=== PATIENT | female | born 1990 | race Caucasian/White ===

== ENCOUNTER 2017-08-04 16:44 | Emergency (ER) | payer OTHER ==
[2017-08-04 16:55] VITALS: RESP 16
[2017-08-04] MEDS ORDERED: SODIUM CHLORIDE 0.9% 1,000 ML IV STA ×2 (17:23)
[2017-08-04] MEDS ORDERED: ONDANSETRON 4 MG/2 ML VIAL IVP STA (17:23)
--- NOTE | 2017-08-04 17:42 | ED ---
Nausea/Vomiting/Diarrhea HPI - General Chief complaint: Nausea/Vomiting/Diarrhea Stated complaint: Hip Pain, very tired Time Seen by Provider: 08/04/17 17:02 Source: patient, RN notes reviewed, old records reviewed Mode of arrival: ambulatory Limitations: no limitations - History of Present Illness Initial comments: This is a 27-year-old female presents to the emergency Department chief complaint of increased fatigue for the past 3 days that she was at work today and had one episode of vomiting a total that she needed to come to the emergency department. She denies any specific pain in her abdomen. She also reports that last night when she was sleeping she had some burning sensation over her left hip. She denies any pain with walking. Patient states she's had no dysuria or changes in bowel movements. She states that the pain only seems to be in proper whenever she lays directly on her left hip. Patient denies any known fever or chills, no history of sick contacts. Patient reports that she's been under a lot of stress lately due to relationships, she states that that might be why she said fatigued. She alsor relates intermittent cough adn sinus congestion. - Related Data Home Medications Medication Instructions Recorded Confirmed Amitriptyline HCl 10 mg PO HS 08/04/17 08/04/17 HYDROcodone/APAP 5-325MG [[place] 1 tab PO BID 08/04/17 08/04/17 5-325] Naproxen Sodium [Aleve] 220 mg PO BID PRN 08/04/17 08/04/17 Previous Rx's Medication Instructions Recorded Azithromycin [Zithromax] 250 mg PO DAILY #6 tab 08/04/17 methylPREDNISolone Dose Pack 4 mg PO DIRECTED #21 package 08/04/17 [Medrol Dose Pack] Allergies Allergy/AdvReac Type Severity Reaction Status Date / Time cyclobenzaprine HCl AdvReac Unknown Verified 08/04/17 17:06 [From Flexeril] propranolol AdvReac Decreased Verified 08/04/17 17:06 BP sumatriptan [From Imitrex] AdvReac Unknown Verified 08/04/17 17:06 sumatriptan succinate AdvReac Unknown Verified 08/04/17 17:06 [From Imitrex] tramadol HCl [From Ultram] AdvReac Unknown Verified 08/04/17 17:06 Review of Systems ROS Statement: Those systems with pertinent positive or pertinent negative responses have been documented in the HPI. ROS Other: All systems not noted in ROS Statement are negative. Past Medical History Past Medical History: Seizure Disorder History of Any Multi-Drug Resistant Organisms: MRSA Date of last positivie culture/infection: 2011 MDRO Source:: genital area Past Surgical History: Section, Tubal Ligation, Uterine Ablation Past Psychological History: No Psychological Hx Reported Smoking Status: Never smoker Past Alcohol Use History: None Reported Past Drug Use History: Marijuana General Exam - General Exam Comments Initial Comments: This is a 27-year-old female. No acute distress. Limitations: no limitations General appearance: alert, in no apparent distress Head exam: Present: atraumatic, normocephalic, normal inspection Eye exam: Present: normal appearance, PERRL, EOMI. Absent: scleral icterus, conjunctival injection, periorbital swelling ENT exam: Present: normal exam, mucous membranes moist Neck exam: Present: normal inspection. Absent: tenderness, meningismus, lymphadenopathy Respiratory exam: Present: normal lung sounds bilaterally. Absent: respiratory distress, wheezes, rales, rhonchi, stridor Cardiovascular Exam: Present: regular rate, normal rhythm, normal heart sounds. Absent: systolic murmur, diastolic murmur, rubs, gallop, clicks GI/Abdominal exam: Present: soft, normal bowel sounds. Absent: distended, tenderness, guarding, rebound, rigid Extremities exam: Present: normal inspection, full ROM, normal capillary refill. Absent: tenderness, pedal edema, joint swelling, calf tenderness Back exam: Present: normal inspection Neurological exam: Present: alert, oriented X3, CN II-XII intact Psychiatric exam: Present: normal affect, normal mood Course Vital Signs 08/04/17 08/04/17 16:51 20:26 Temperature 98.6 F 98 F Pulse Rate 65 76 Respiratory 16 16 Rate Blood Pressure 121/73 131/65 O2 Sat by Pulse 98 100 Oximetry Medical Decision Making - Medical Decision Making This is a 27-year-old female presents to the emergency Department chief complaint of increased fatigue for the past 3 days that she was at work today and had one episode of vomiting a total that she needed to come to the emergency department. She denies any specific pain in her abdomen. She also reports that last night when she was sleeping she had some burning sensation over her left hip. She denies any pain with walking. PAtietn has full range of motion of hip, lungs are clear, throat appears normal. Patient also reports sinus congestion. Patient lab work reviewed, mild leukocytosis. Patient hip xray , chest xray are negative. Patient urine shows no infection. I beliece hip pain is due to sciatic nerve inflammation. PAtient will be started on azithromycin and medrol dose paick for upper respiratory infection. Written off for work, return parameters discussed. - Lab Data Result diagrams: 08/04/17 18:03 08/04/17 18:03 Lab Results 08/04/17 08/04/17 08/04/17 Range/Units 18:03 18:03 18:03 WBC 12.5 H (3.8-10.6) k/uL RBC 4.77 (3.80-5.40) m/uL Hgb 14.1 (11.4-16.0) gm/dL Hct 42.8 (34.0-46.0) % MCV 89.7 (80.0-100.0) fL MCH 29.6 (25.0-35.0) pg MCHC 33.0 (31.0-37.0) g/dL RDW 14.0 (11.5-15.5) % Plt Count 287 (150-450) k/uL Neutrophils % 84 % Lymphocytes % 9 % Monocytes % 5 % Eosinophils % 2 % Basophils % 0 % Neutrophils # 10.4 H (1.3-7.7) k/uL Lymphocytes # 1.1 (1.0-4.8) k/uL Monocytes # 0.6 (0-1.0) k/uL Eosinophils # 0.2 (0-0.7) k/uL Basophils # 0.0 (0-0.2) k/uL Sodium 141 (137-145) mmol/L Potassium 3.8 (3.5-5.1) mmol/L Chloride 106 (98-107) mmol/L Carbon Dioxide 26 (22-30) mmol/L Anion Gap 9 mmol/L BUN 12 (7-17) mg/dL Creatinine 0.71 (0.52-1.04) mg/dL Est GFR (MDRD) Af Amer >60 (>60 ml/min/1.73 sqM) Est GFR (MDRD) Non-Af >60 (>60 ml/min/1.73 sqM) Glucose 82 (74-99) mg/dL Calcium 9.5 (8.4-10.2) mg/dL Total Bilirubin 0.4 (0.2-1.3) mg/dL AST 20 (14-36) U/L ALT 26 (9-52) U/L Alkaline Phosphatase 60 (38-126) U/L Total Protein 7.2 (6.3-8.2) g/dL Albumin 4.5 (3.5-5.0) g/dL Amylase 40 (30-110) U/L Lipase 34 (23-300) U/L Urine Color Urine Appearance (Clear) Urine pH (5.0-8.0) Ur Specific [place] (1.001-1.035) Urine Protein (Negative) Urine Glucose (UA) (Negative) Urine Ketones (Negative) Urine Blood (Negative) Urine Nitrite (Negative) Urine Bilirubin (Negative) Urine Urobilinogen (<2.0) mg/dL Ur Leukocyte Esterase (Negative) Urine Opiates Screen (NotDetected) Ur Oxycodone Screen (NotDetected) Urine Methadone Screen (NotDetected) Ur Propoxyphene Screen (NotDetected) Ur Barbiturates Screen (NotDetected) U Tricyclic Antidepress (NotDetected) Ur Phencyclidine Scrn (NotDetected) Ur Amphetamines Screen (NotDetected) U Methamphetamines Scrn (NotDetected) U Benzodiazepines Scrn (NotDetected) Urine Cocaine Screen (NotDetected) U Marijuana (THC) Screen (NotDetected) Heterophile Antibody Negative (Negative) 08/04/17 Range/Units 18:43 WBC (3.8-10.6) k/uL RBC (3.80-5.40) m/uL Hgb (11.4-16.0) gm/dL Hct (34.0-46.0) % MCV (80.0-100.0) fL MCH (25.0-35.0) pg MCHC (31.0-37.0) g/dL RDW (11.5-15.5) % Plt Count (150-450) k/uL Neutrophils % % Lymphocytes % % Monocytes % % Eosinophils % % Basophils % % Neutrophils # (1.3-7.7) k/uL Lymphocytes # (1.0-4.8) k/uL Monocytes # (0-1.0) k/uL Eosinophils # (0-0.7) k/uL Basophils # (0-0.2) k/uL Sodium (137-145) mmol/L Potassium (3.5-5.1) mmol/L Chloride (98-107) mmol/L Carbon Dioxide (22-30) mmol/L Anion Gap mmol/L BUN (7-17) mg/dL Creatinine (0.52-1.04) mg/dL Est GFR (MDRD) Af Amer (>60 ml/min/1.73 sqM) Est GFR (MDRD) Non-Af (>60 ml/min/1.73 sqM) Glucose (74-99) mg/dL Calcium (8.4-10.2) mg/dL Total Bilirubin (0.2-1.3) mg/dL AST (14-36) U/L ALT (9-52) U/L Alkaline Phosphatase (38-126) U/L Total Protein (6.3-8.2) g/dL Albumin (3.5-5.0) g/dL Amylase (30-110) U/L Lipase (23-300) U/L Urine Color Yellow Urine Appearance Clear (Clear) Urine pH 6.5 (5.0-8.0) Ur Specific [place] 1.012 (1.001-1.035) Urine Protein Negative (Negative) Urine Glucose (UA) Negative (Negative) Urine Ketones Negative (Negative) Urine Blood Negative (Negative) Urine Nitrite Negative (Negative) Urine Bilirubin Negative (Negative) Urine Urobilinogen <2.0 (<2.0) mg/dL Ur Leukocyte Esterase Negative (Negative) Urine Opiates Screen Detected H (NotDetected) Ur Oxycodone Screen Not Detected (NotDetected) Urine Methadone Screen Not Detected (NotDetected) Ur Propoxyphene Screen Not Detected (NotDetected) Ur Barbiturates Screen Not Detected (NotDetected) U Tricyclic Antidepress Not Detected (NotDetected) Ur Phencyclidine Scrn Not Detected (NotDetected) Ur Amphetamines Screen Not Detected (NotDetected) U Methamphetamines Scrn Not Detected (NotDetected) U Benzodiazepines Scrn Not Detected (NotDetected) Urine Cocaine Screen Not Detected (NotDetected) U Marijuana (THC) Screen Detected H (NotDetected) Heterophile Antibody (Negative) - Radiology Data Radiology results: report reviewed hip and CXR are negative for any acute process. Disposition Clinical Impression: Fatigue, Left sided sciatica Disposition: HOME SELF-CARE Condition: Good Instructions: Sciatica (ED), Upper Respiratory Infection (ED) Additional Instructions: Patient advised to follow-up with primary care provider. Return to the emergency department if any alarming signs or symptoms occur. Prescriptions: Azithromycin [Zithromax] 250 mg PO DAILY #6 tab methylPREDNISolone Dose Pack [Medrol Dose Pack] 4 mg PO DIRECTED #21 package Referrals: Fernando Martin MD [Primary Care Provider] - 1-2 days Time of Disposition: 20:01
[2017-08-04 18:13] LABS: Basophils % (A) 0 %; CH 30.5; CHCM 34.1; Eosinophils # (A) 0.2 k/uL (0-0.7); Eosinophils % (A) 2 %; HCT 42.8 % (34.0-46.0); HDW 2.37; HGB 14.1 gm/dL (11.4-16.0); Luc # (Auto) 0.11; Luc % (Auto) 1; Lymphocytes # (A) 1.1 k/uL (1.0-4.8); Lymphocytes % (A) 9 %; MCH 29.6 pg (25.0-35.0); MCV 89.7 fL (80.0-100.0); Mean Platelet Volume 7.3; Monocytes # (A) 0.6 k/uL (0-1.0); Monocytes % (A) 5 %; Neutrophils # (A) 10.4 k/uL (1.3-7.7); Neutrophils % (A) 84 %; RBC 4.77 m/uL (3.80-5.40); WBC 12.5 k/uL (3.8-10.6); WBC (Perox) 12.68
[2017-08-04 18:34] LABS: ALT 26 U/L (9-52); AST 20 U/L (14-36); Alkaline Phosphatase 60 U/L (38-126); Amylase 40 U/L (30-110); Anion Gap 9 mmol/L; Blood Urea Nitrogen 12 mg/dL (7-17); Calcium 9.5 mg/dL (8.4-10.2); Carbon Dioxide 26 mmol/L (22-30); Chloride 106 mmol/L (98-107); Glucose 82 mg/dL (74-99); Non-African American GFR(MDRD) >60 (>60 ml/min/1.73 sqM); Potassium 3.8 mmol/L (3.5-5.1); Sodium 141 mmol/L (137-145); Total Bilirubin 0.4 mg/dL (0.2-1.3); Total Protein 7.2 g/dL (6.3-8.2)
--- NOTE | 2017-08-04 18:34 | XR ---
EXAMINATION TYPE: XR Hip Complete LT DATE OF EXAM: 08/04/2017 COMPARISON: NONE HISTORY: Hip pain TECHNIQUE: 2 views FINDINGS: I see no fracture nor dislocation. Hip joint space is fairly normal. Sacroiliac joint is in tact. IMPRESSION: Negative left hip exam.
[2017-08-04 18:53] LABS: Appearance,Urine Clear (Clear); Bilirubin,Urine Negative (Negative); Glucose,Urine (UA) Negative (Negative); Ketones,Urine Negative (Negative); Leukocyte Esterase,Urine Negative (Negative); Nitrite,Urine Negative (Negative); PH, Urine 6.5 (5.0-8.0); Protein,Urine Negative (Negative); Specific Gravity,Urine 1.012 (1.001-1.035); UA Billing (MACRO vs. MICRO) CHEM; Urobilinogen,Urine <2.0 mg/dL (<2.0)
--- NOTE | 2017-08-04 19:56 | XR ---
EXAMINATION TYPE: XR chest 2V DATE OF EXAM: 08/04/2017 COMPARISON: 05/26/2011 HISTORY: Nausea and vomiting. Chest pain. TECHNIQUE: Frontal and lateral views of the chest are obtained. FINDINGS: Heart and mediastinum are normal. Lungs are clear. Diaphragm is normal. Bony thorax appear s normal. IMPRESSION: Normal chest. No change.
[2017-08-04 20:26] VITALS: BP 131/65; PULSE 76; TEMP 98
== END 2017-08-04 20:29 | disposition home or self-care (01) ==
LOC: EC 16:44
DX: M54.32 Sciatica, left side (principal); R53.83 Other fatigue; R11.10 Vomiting, unspecified; Z79.891 Long term (current) use of opiate analgesic; Z79.899 Other long term (current) drug therapy; Z88.6 Allergy status to analgesic agent; Z88.8 Allergy status to other drugs, medicaments and biological substances
CPT/HCPCS: 36415; 80053; 82150; 83690; 85025; 86308; 81003; 80306; 71020; 73502; 99284; 96374; 96361 ×2; J2405

== ENCOUNTER 2017-08-19 14:24 | Emergency (ER) | payer OTHER ==
[2017-08-19] MEDS ORDERED: METOCLOPRAMIDE 5 MG/ML 2 ML VIAL IVP STA (14:36)
[2017-08-19] MEDS ORDERED: KETOROLAC 30 MG/ML 1 ML VIAL IVP STA (14:36)
[2017-08-19] MEDS ORDERED: diphenhydrAMINE 50 MG/ML 1 ML VIAL IVP STA (14:36)
[2017-08-19] MEDS ORDERED: SODIUM CHLORIDE 0.9% 1,000 ML IV STA (14:36)
--- NOTE | 2017-08-19 14:39 | ED ---
General Adult HPI - General Chief complaint: Headache Stated complaint: migraine Time Seen by Provider: 08/19/17 14:29 Source: patient, RN notes reviewed Mode of arrival: ambulatory Limitations: no limitations - History of Present Illness Initial comments: 27-year-old female presents emergency room chief complaint of migraine. Patient has a history of migraines and states that she has had a migraine for the past 2 days. Slowly getting worse. She tried Advil home with no improvement. She has nausea with dry heaves. Patient denies any fever chills with this. Patient states much like her normal migraine. Patient was concerned because it does not seem to be getting any better so she thought that she should be evaluated. Patient denies any recent fever, chills, shortness of breath, chest pain, back pain, abdominal pain, nausea vomiting, numbness or tingling, dysuria or hematuria, constipation or diarrhea, visual changes, or any other current symptoms. - Related Data Home Medications Medication Instructions Recorded Confirmed Amitriptyline HCl 10 mg PO HS 08/04/17 08/19/17 HYDROcodone/APAP 5-325MG [[place] 1 tab PO BID 08/04/17 08/19/17 5-325] Ibuprofen [Advil] 200 mg PO Q8HR PRN 08/19/17 08/19/17 Allergies Allergy/AdvReac Type Severity Reaction Status Date / Time cyclobenzaprine HCl AdvReac Unknown Verified 08/19/17 15:01 [From Flexeril] propranolol AdvReac Decreased Verified 08/19/17 15:01 BP sumatriptan [From Imitrex] AdvReac Unknown Verified 08/19/17 15:01 sumatriptan succinate AdvReac Unknown Verified 08/19/17 15:01 [From Imitrex] tramadol HCl [From Ultram] AdvReac Unknown Verified 08/19/17 15:01 Review of Systems ROS Statement: Those systems with pertinent positive or pertinent negative responses have been documented in the HPI. ROS Other: All systems not noted in ROS Statement are negative. Past Medical History Past Medical History: Seizure Disorder History of Any Multi-Drug Resistant Organisms: MRSA Date of last positivie culture/infection: 2011 MDRO Source:: genital area Past Surgical History: Section, Tubal Ligation, Uterine Ablation Past Psychological History: No Psychological Hx Reported Smoking Status: Never smoker Past Alcohol Use History: None Reported Past Drug Use History: Marijuana General Exam - General Exam Comments Initial Comments: General: The patient is awake and alert, in no distress, and does not appear acutely ill. Eye: Pupils are equal, round and reactive to light, extra-ocular movements are intact; there is normal conjunctiva bilaterally. No signs of icterus. Ears, nose, mouth and throat: There are moist mucous membranes. Neck: The neck is supple, there is no tenderness. Cardiovascular: There is a regular rate and rhythm. No murmur, rub or gallop is appreciated. Respiratory: Lungs are clear to auscultation, respirations are non-labored, breath sounds are equal. No wheezes, stridor, rales, or rhonchi. Gastrointestinal: Soft, non-distended, non-tender abdomen without masses or organomegaly noted. There is no rebound or guarding present. No CVA tenderness. Bowel sounds are unremarkable. Back: There is no tenderness to palpation in the midline. There is no obvious deformity. No rashes noted. Musculoskeletal: Normal ROM, no tenderness, There is no pedal edema. There is no calf tenderness or swelling. Sensation intact. Pulses equal bilaterally 2+. Neurological: CN II-XII intact, There are no obvious motor or sensory deficits. Coordination appears grossly intact. Speech is normal. Skin: Skin is warm and dry and no rashes or lesions are noted. Psychiatric: Cooperative, appropriate mood & affect, normal judgment. Limitations: no limitations Course Vital Signs 08/19/17 08/19/17 14:25 15:23 Temperature 97.8 F Pulse Rate 76 89 Respiratory 18 16 Rate Blood Pressure 126/71 117/62 O2 Sat by Pulse 98 99 Oximetry Medical Decision Making - Medical Decision Making 27-year-old female presents emergency Department chief complaint of headache much like her normal headache. At this time patient is reexamined and states that she is feeling much better and requesting discharge home. This time we will discharge the patient. We did discuss follow-up and return parameters all the questions. She stated that she understood and she is. This time she stated that she understood Disposition Clinical Impression: Headache Disposition: HOME SELF-CARE Condition: Stable Instructions: Acute Headache (ED) Additional Instructions: Please use medication as discussed. Please follow up with family doctor if symptoms have not improved over the next two days. Please return to the emergency room if your symptoms increase or worsen or for any other concerns. Referrals: Fernando Martin MD [Primary Care Provider] - 1-2 days Time of Disposition: 15:45
[2017-08-19 16:16] VITALS: BP 112/68; PULSE 82; RESP 18; TEMP 98
== END 2017-08-19 16:16 | disposition home or self-care (01) ==
LOC: EC 14:24
DX: R51 Headache (principal); R11.2 Nausea with vomiting, unspecified; Z79.899 Other long term (current) drug therapy; Z88.6 Allergy status to analgesic agent; Z88.8 Allergy status to other drugs, medicaments and biological substances; Z86.14 Personal history of Methicillin resistant Staphylococcus aureus infection
CPT/HCPCS: 99284 ×2; 96374 ×2; 96375 ×3; 96361 ×2; J1200; J2765; J1885

== ENCOUNTER 2022-10-02 15:56 | Emergency (ER) | payer OTHER ==
[2022-10-02 16:02] VITALS: BP 156/91; PULSE 124; RESP 20; TEMP 98.5
[2022-10-02] MEDS ORDERED: LIDOCAINE 1% INJ 10MG/ML (30 ML VIAL-PF) SQ ONE (16:17)
--- NOTE | 2022-10-02 17:09 | ED ---
Lower Extremity Injury HPI - General Chief Complaint: Extremity Injury, Lower Stated Complaint: Glass in Lft Foot Time Seen by Provider: 10/02/22 16:14 Source: patient, RN notes reviewed Mode of arrival: ambulatory Limitations: no limitations - History of Present Illness Initial Comments: Patient is a 32-year-old female presented to the emergency room with complaints of stepping on a piece of glass approximately 4 days after accidentally stepping where a and ashtray had been dropped and broken. She reports that she has attempted to remove the small piece herself multiple times and has been unsuccessful. The glass is in the sole of the foot in the ball of the foot distal to her third digit. She denies any purulent drainage, redness, swelling, fevers or chills. She is able to ambulate on the foot with mild tenderness noted at the site of foreign body. She denies any trauma to any other area. She is a past medical history significant for seizures. She reports that her tetanus vaccination is up-to-date. - Related Data Home Medications Medication Instructions Recorded Confirmed Amitriptyline HCl 10 mg PO HS 08/04/17 08/19/17 HYDROcodone/APAP 5-325MG [[place] 1 tab PO BID 08/04/17 08/19/17 5-325] Ibuprofen [Advil] 200 mg PO Q8HR PRN 08/19/17 08/19/17 Allergies Allergy/AdvReac Type Severity Reaction Status Date / Time cyclobenzaprine HCl AdvReac Unknown Verified 10/02/22 16:02 [From Flexeril] propranolol AdvReac Decreased Verified 10/02/22 16:02 BP sumatriptan [From Imitrex] AdvReac Unknown Verified 10/02/22 16:02 sumatriptan succinate AdvReac Unknown Verified 10/02/22 16:02 [From Imitrex] tramadol HCl [From Ultram] AdvReac Unknown Verified 10/02/22 16:02 Review of Systems ROS Statement: Those systems with pertinent positive or pertinent negative responses have been documented in the HPI. ROS Other: All systems not noted in ROS Statement are negative. Past Medical History Past Medical History: Seizure Disorder History of Any Multi-Drug Resistant Organisms: MRSA Date of last positivie culture/infection: 2011 MDRO Source:: genital area Past Surgical History: Section, Tubal Ligation, Uterine Ablation Past Psychological History: No Psychological Hx Reported Smoking Status: Never smoker Past Alcohol Use History: None Reported Past Drug Use History: Marijuana General Exam Limitations: no limitations General appearance: alert, in no apparent distress Head exam: Present: atraumatic, normocephalic, normal inspection Eye exam: Present: normal appearance, PERRL, EOMI. Absent: scleral icterus, conjunctival injection, periorbital swelling ENT exam: Present: normal exam, mucous membranes moist Neck exam: Present: normal inspection, full ROM Respiratory exam: Absent: respiratory distress, accessory muscle use Cardiovascular Exam: Present: regular rate GI/Abdominal exam: Absent: distended Extremities exam: Absent: pedal edema, joint swelling Left Foot/Toe exam: Present: full ROM, tenderness (Over foreign body), foreign body (Triangular-shaped opaque glass less than 2 mm in length removed with forceps without competitions, no surrounding induration.). Absent: swelling Neurovascular tendon exam: Present: no vascular compromise Gait: observed and limited by pain Back exam: Present: normal inspection Neurological exam: Present: alert, oriented X3, CN II-XII intact Psychiatric exam: Present: normal affect, normal mood Skin exam: Present: other (Small puncture-like laceration due to class foreign body to foot status post removal tolerated well.) Course Vital Signs 10/02/22 16:01 Temperature 98.5 F Pulse Rate 124 H Respiratory 20 Rate Blood Pressure 156/91 O2 Sat by Pulse 99 Oximetry Procedures - Forgein Body Removal Soft Tissue Consent Obtained: verbal consent Site: foot Anesthetic Used: lidocaine 1% Foreign Body Suspected: Glass Foreign Body Removed: yes Foreign Body Removal Technique: Forceps Patient Tolerated Procedure: well, no complications Medical Decision Making - Medical Decision Making 32-year-old female presenting with a small piece of glass/foreign body embedded in foot no deep penetration. No indication for diagnostic imaging or laboratory studies. We will of infiltrate local anesthetic and removed. Tetanus is up-to-date. No indication for antibiotic therapy. Foreign body removed without complication. Will discharge home in stable condition. Advised to keep area covered and clean while monitoring for signs of infection. Advise follow-up with [facility] care provider. Case discussed with Dr. Martinez. Disposition Clinical Impression: Other foreign body or object entering through skin, initial encounter Disposition: HOME SELF-CARE Condition: Stable Instructions (If sedation given, give patient instructions): Soft Tissue Foreign Body (ED), Puncture Wound (ED) Additional Instructions: Please keep wound clean and dry. Monitor for signs and symptoms of infection and seek medical attention as appropriate if they occur. Please return to the Emergency Department if symptoms worsen or any other concerns. Is patient prescribed a controlled substance at d/c from ED?: No Referrals: Fernando Martin MD [Primary Care Provider] - 1-2 days Time of Disposition: 17:06
== END 2022-10-02 17:21 | disposition home or self-care (01) ==
LOC: EC 15:56
DX: S99.922A Unspecified injury of left foot, initial encounter (principal); F12.90 Cannabis use, unspecified, uncomplicated; Z88.8 Allergy status to other drugs, medicaments and biological substances; Z88.5 Allergy status to narcotic agent; W45.8XXA Other foreign body or object entering through skin, initial encounter
CPT/HCPCS: 10120; 99283; J2001